=== PATIENT | female | born 1965 | race Caucasian/White ===

== ENCOUNTER 2025-02-16 13:40 | Emergency (ER) | payer OTHER ==
[~2025-02-16] VITALS: Ht 170.2 cm; Wt 81.8 kg
[~2025-02-16 13:40] MED LIST: ACET-3385 PO; CYCL-448 PO; GABA600T PO; TRAM50TA5 PO
[2025-02-16 14:57] VITALS: BP 169/108; PULSE 109; RESP 20; TEMP 98.6; O2SAT 98
[2025-02-16] MEDS: IBUPROFEN 600 MG TABLET PO ONE (15:16)
== END 2025-02-16 15:23 | disposition home or self-care (01) ==
LOC: EMS 13:45
DX: S62.622A Displaced fracture of middle phalanx of right middle finger, initial encounter for closed fracture (principal); W22.8XXA Striking against or struck by other objects, initial encounter; Y93.89 Activity, other specified; Y92.89 Other specified places as the place of occurrence of the external cause; Y99.8 Other external cause status
CPT/HCPCS: 99283